=== PATIENT | male | born 1950 | race Caucasian/White ===

== ENCOUNTER → 2023-11-10 12:39 | Outpatient (REF) | payer MEDICARE, SELFPAY ==
[2023-11-10 15:40] LABS: Iron 70 ug/dl (49-181)
[2023-11-10 15:49] LABS: Percent Saturation 24 % (20-50); Total Iron Binding Capacity 285 ug/dl (261-462)
[2023-11-10 16:46] LABS: Folate > 20.0 ng/ml (2.76-20); Vitamin B12 408 pg/ml (239-931)
[2023-11-11 09:24] LABS: Glycohemoglobin (HgbA1c) 5.7 % (4.0-5.6)
== END ==
LOC: HWLAB 12:39
PROVIDERS: ATTENDING PHYSICIAN Family Medicine
DX: R73.01 Impaired fasting glucose (principal); D53.9 Nutritional anemia, unspecified
CPT/HCPCS: 36415; 82607; 82728; 82746; 83036; 83540; 83550; 85045; 87045; 87046; 87324; 87328; 87329; 87427; 87449; 89055

== ENCOUNTER → 2023-12-03 13:27 | Outpatient (REF) | payer MEDICARE, SELFPAY ==
[2023-12-03 16:04] LABS: % Basophils 0.3 % (0-2); % Eosinophils 1.2 % (0-6); % Immature Granulocytes 0.4 % (0-0.5); % Lymphocytes 14.9 % (20.5-51.1); % Monocytes 11.8 % (1.7-9.3); % Neutrophils 71.4 % (42.2-75.2); Absolute Eosinophils 0.1 10^3/uL (0-0.7); Absolute Immature Granulocytes 0.1 10^3/uL (0-0.05); Absolute Lymphocytes 1.7 10^3/uL (1.2-3.4); Absolute Monocytes 1.3 10^3/uL (0.1-0.6); Hematocrit 37.3 % (39.0-52.0); Hemoglobin 12.6 g/dL (13.0-18.0); Mean Corp Hgb Conc. 33.8 g/dL (33.0-37.0); Mean Corpuscular Volume 91.6 fL (80.0-94.0); Mean Platelet Volume 9.9 fL (7.4-10.4); Nucleated Red Blood Cells % 0 % (-); Platelet Count 149 10^3/uL (130-400); Red Blood Cell Count 4.07 10^6/uL (4.70-6.10); Red Cell Dist. Width 12.1 % (11.5-14.5); White Blood Cell Count 11.2 10^3/uL (4.8-10.8)
== END ==
LOC: HWLAB 13:27
PROVIDERS: ATTENDING PHYSICIAN Family Medicine
DX: D53.9 Nutritional anemia, unspecified (principal)
CPT/HCPCS: 36415; 85025

== ENCOUNTER → 2024-07-12 08:52 | Outpatient (REF) | payer MEDICARE, SELFPAY ==
[2024-07-12 12:29] LABS: % Basophils 0.6 % (0-2); % Eosinophils 2.7 % (0-6); % Immature Granulocytes 0.3 % (0-0.5); % Lymphocytes 22.3 % (20.5-51.1); % Monocytes 10.4 % (1.7-9.3); % Neutrophils 63.7 % (42.2-75.2); Absolute Eosinophils 0.2 10^3/uL (0-0.7); Absolute Lymphocytes 1.5 10^3/uL (1.2-3.4); Absolute Monocytes 0.7 10^3/uL (0.1-0.6); Absolute Neutrophils 4.2 10^3/uL (1.4-6.5); Hematocrit 40.3 % (39.0-52.0); Hemoglobin 13.5 g/dL (13.0-18.0); Mean Corp Hgb Conc. 33.5 g/dL (33.0-37.0); Mean Corpuscular Hgb 31.3 pg (27.0-31.0); Mean Corpuscular Volume 93.3 fL (80.0-94.0); Mean Platelet Volume 9.8 fL (7.4-10.4); Nucleated Red Blood Cells % 0 % (-); Platelet Count 125 10^3/uL (130-400); Red Blood Cell Count 4.32 10^6/uL (4.70-6.10); Red Cell Dist. Width 11.9 % (11.5-14.5); White Blood Cell Count 6.6 10^3/uL (4.8-10.8)
[2024-07-12 12:41] LABS: ALT (SGPT) 20 U/L (0-50); AST (SGOT) 22 U/L (17-59); Albumin 4.4 g/dl (3.5-5.0); Alkaline Phosphatase 79 U/L (38-126); HDL Cholesterol 38 mg/dl; LDL Cholesterol, Calculated 56 mg/dl; Total Bilirubin 0.4 mg/dl (0.2-1.3); Total Cholesterol 126 mg/dl (50-199); Total Protein 6.8 g/dl (6.3-8.2); Triglyceride 161 mg/dl (10-149); Very Low Density Lipoprotein 32 mg/dl (0-30)
[2024-07-12 13:02] LABS: Glycohemoglobin (HgbA1c) 5.3 % (4.0-5.6)
== END ==
LOC: HWLAB 08:52
PROVIDERS: ATTENDING PHYSICIAN Family Medicine
DX: E78.2 Mixed hyperlipidemia (principal); R73.01 Impaired fasting glucose; D72.829 Elevated white blood cell count, unspecified
CPT/HCPCS: 36415; 80061; 80076; 83036; 85025